=== PATIENT | male | born 1990 | race African-American/Black ===

== ENCOUNTER 2016-10-22 00:24 | Emergency (ER) | payer SELFPAY ==
[2016-10-22] MEDS ORDERED: Fentanyl 100 MCG/2 ML VIAL ONE (00:45)
[2016-10-22] MEDS ORDERED: Bacitracin Zinc 1 Packet ONE ×3 (01:21→02:09)
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
== END 2016-10-22 02:33 | disposition home or self-care (01) ==
LOC: NAV ERS 00:24
DX: S06.0X1A Concussion with loss of consciousness of 30 minutes or less, initial encounter (principal); S00.03XA Contusion of scalp, initial encounter; S90.812A Abrasion, left foot, initial encounter; S90.811A Abrasion, right foot, initial encounter; S90.415A Abrasion, left lesser toe(s), initial encounter; S00.83XA Contusion of other part of head, initial encounter; V86.09XA Driver of other special all-terrain or other off-road motor vehicle injured in traffic accident, initial encounter
CPT/HCPCS: 70450; 70486; 96372; J3010

== ENCOUNTER 2024-02-10 08:29 | Emergency (ER) | payer BC, OTHER, SELFPAY ==
[2024-02-10] MEDS ORDERED: Ketorolac Tromethamine 30 MG (1 mL) VIAL ONE (08:54)
[2024-02-10] MEDS ORDERED: Sodium Chloride 0.9% 1,000 ML ONE (08:54)
[2024-02-10 09:03] LABS: #Basophils 0.1 thou/uL (0.0-0.2); #Eosinophils 0.1 thou/uL (0.0-0.7); #Lymphocytes 2.3 thou/uL (1.20-3.40); #Monocytes 0.3 thou/uL (0.11-0.59); #Neutrophils 3.3 thou/uL (1.40-6.50); %Basophils 1.4 % (0.0-1.0); %Lymphocytes 37.6 % (21.0-51.0); %Monocytes 5.1 % (0.0-10.0); %Neutrophils 54.9 % (42.0-75.0); Hematocrit 45.1 % (42.0-52.0); Mean Corpuscular HGB CONC 31.1 g/dL (32.0-36.0); Mean Corpuscular Hemoglobin 24.8 pg (27.0-31.0); Mean Corpuscular Volume 79.8 fl (78.0-98.0); Mean Platelet Volume 8.5 fL (7.4-10.4); Platelet Count 246 10x3/uL (130-400); RBC Distribution Width 12.1 % (11.5-14.5); Red Blood Cell (RBC) Count 5.65 mill/uL (4.70-6.10); White Blood Cell (WBC) Count 6.1 10x3/uL (4.8-10.8)
[2024-02-10 09:14] LABS: ALT (SGPT) 24 U/L (8-55); AST (SGOT) 16 U/L (5-34); Albumin 4.3 g/dL (3.5-5.0); Alkaline Phosphatase 44 U/L (40-110); Anion Gap 15 mmol/L (10-20); BUN (Urea Nitrogen) 18 mg/dL (8.9-20.6); Bilirubin, Total 0.6 mg/dL (0.2-1.2); Calc. Creatinine Clearance 0 mL/min (70-130); Calcium 9.7 mg/dL (7.8-10.44); Carbon Dioxide 24 mmol/L (22-29); Chloride 105 mmol/L (98-107); Estimated GFR 77; Globulin 3.2 g/dL (2.4-3.5); Glucose 103 mg/dL (70-105); Potassium 3.5 mmol/L (3.5-5.1); Protein, Total 7.5 g/dL (6.0-8.3); Sodium 140 mmol/L (136-145)
[2024-02-10 09:15] LABS: Bilirubin Negative (Negative); Blood, Urine Moderate (Negative); Clarity Hazy (Clear); Glucose, Urine (Dipstick) Negative (Negative); Ketone, Urine 80 mg/dL (Negative); Leukocyte Negative (Negative); Nitrite Negative (Negative); Protein, Urine (Dipstick) Negative (Neg-Trace)
[2024-02-10 09:17] LABS: Specific Gravity, Urine 1.027 (1.005-1.030)
[2024-02-10 09:20] LABS: CAUTI Indications for Culture Pelvic or flank pain; Mucous/LPF 1+ LPF (<2+); WBC/HPF 0-3 HPF (0-3)
[2024-02-10 09:21] LABS: Urine Culture Reflex No No
== END 2024-02-10 09:53 | disposition home or self-care (01) ==
LOC: NAV ERS 08:29
DX: N13.2 Hydronephrosis with renal and ureteral calculous obstruction (principal)
CPT/HCPCS: 74176; 80053; 81001; 85025; 96374; J1885; J7030